=== PATIENT | male | born 1950 | race Caucasian/White ===

== ENCOUNTER 2017-07-04 11:35 | Day surgery (SDC) | payer MEDICARE, OTHER ==
[2017-07-03 16:05] LABS: BASOPHILS 0.5 % (0-2); EOSINOPHILS 1.2 % (0-7); HEMATOCRIT 51.8 % (42.0-54.0); HEMOGLOBIN 17.9 g/dL (13.5-17.5); IMMATURE GRANULOCYTES 1.5 % (0-5); LYMPHOCYTES 22.5 % (15-50); MCHC 34.6 g/dL (31.0-37.0); MCV 92.7 fL (80.0-100.0); MONOCYTES 7.6 % (2-11); NEUTROPHILS 66.7 % (40-80); RBC 5.59 10x6/uL (4.20-6.10); RDW 13.2 % (11.5-14.5); WBC 9.1 10x3/uL (4.8-10.8)
[2017-07-03 16:15] LABS: ANION GAP 8.9 mmol/L (8-16); CALCIUM 9.7 mg/dL (8.5-10.1); CARBON DIOXIDE 31.8 mmol/L (21.0-32.0); CREATININE - SERUM 1.6 mg/dL (0.6-1.3); POTASSIUM - SERUM 4.7 mmol/L (3.5-5.1)
[2017-07-03 16:19] LABS: PLATELET COUNT 142 10x3/uL (130-400)
[2017-07-03 17:30] LABS: COLOR DK YELLOW (YELLOW)
[2017-07-03 17:31] LABS: APPEARANCE CLEAR (CLEAR); BACTERIA FEW /hpf (NONE SEEN); BILIRUBIN NEGATIVE (NEGATIVE); GLUCOSE NEGATIVE (NEGATIVE); KETONE NEGATIVE (NEGATIVE); LEUKOCYTE ESTERASE TRACE (NEGATIVE); NITRITE NEGATIVE (NEGATIVE); PROTEIN NEGATIVE (NEGATIVE); RED CELLS - URINE 0-5 /hpf (0-5); UROBILINOGEN NORMAL (NORMAL); WHITE CELLS - URINE 25-50 /hpf (0-5)
[~2017-07-04] VITALS: Ht 185.4 cm; Wt 100.0 kg
--- NOTE | ~2017-07-04 | OP ---
PATIENT NAME: JOSE LINDQUIST MEDICAL RECORD: [id number] :48 LOCATION:D.OPS ADMISSION DATE: SURGEON: KENIA ESTRADA MD DATE OF OPERATION: 07/04/2017 DIAGNOSIS: L2-L3 nerve root compression on the left. PROCEDURE: L2-L3 laminotomy and foraminotomy, left. SURGEON: Kenia Estrada MD. ASSISTANT GUEST SERVICES MANAGER: None. ESTIMATED BLOOD LOSS: 50 cc. SUMMARY: The patient was taken to the operating room and after an adequate level of general anesthetic, was prepped and draped in a prone position on a Umair frame. Following this, an incision was made to the left of the spinous processes of L2-L3 and a METRx tube 1.5 cm in diameter was inserted over the interlaminar space. Following this, a Midas Hernesto drill was used to remove the medial aspect of the facet joint and a Cloward and Kerrison punch were used to enlarge the laminotomy created. A ligamentum flavum was split with a 15-blade and then removed with a Kerrison punch laterally, the neural foramina was enlarged with a Cloward punch. Dissection was then carried out beneath the traversing and exiting nerve root and no disc fragment was identified, only a bony osteophyte. This was flattened with a punch and a mallet. The wound was irrigated with an antibiotic solution and then a closure was carried out with 2-0 Dexon on the fascia and 3-0 Dexon on the subcutaneous tissue and a subcuticular stitch with 4-0 Dexon was used on the skin. The patient tolerated the procedure well, was taken to recovery in stable condition. TRANSINT:[id number] Voice Confirmation ID: [id number] DOCUMENT ID: [id number] KENIA ESTRADA MD CC: [id number] DICTATION DATE: 07/16/17 1555 BOILERS INSPECTOR: 07/16/17 1617 [facility] [place] 07/05/17 [place] [address]
[2017-07-04 11:08] VITALS: BP 137/89; BMI 29.0
[~2017-07-04 11:35] MED LIST: ADVAIR 250/501 DISK INH; ALBUTEROL2.5 MG/3 M INH; ATIVAN1 MG PO; ATROVENT HFA12.9 GM INH; AUGMENTIN 500-11 TA1 PO; BAYER CHEWABLE81 MG PO; BENADRYL25 MG PO; BETAPACE 80 MG80 MG PO; BYSTOLIC2.5 MG PO; COLACE100 MG OR; COLACE100 MG PO; EFFIENT10 MG PO; FLAGYL500 MG PO; FLUTICASONE PRO16 GM NASAL; HYDROCODON-ACE1 EAC6 PO; HYDROCODONE-APA1 TAB PO; IPRAT-ALBUT 0.5-3 ML UPD; KLONOPIN1 MG PO; LACTINEX GRANUL1 PCK PO; LASIX20 MG PO; LEVAQUIN500 MG PO; LISINOPRIL5 MG PO; LOPRESSOR25 MG PO; LOPRESSOR50 MG PO; METAMUCIL FIB1 WAFER PO; MUCINEX D1 TAB.SR . PO; NITROQUICK0.4 MG SL; NORCO 10/325 TA1 TA1 PO; NORCO 5/325 TAB1 TA1 PO; NYSTATIN ORAL SU5 ML PO; OMNICEF300 MG PO; PEPCID20 MG PO; POTASSIUM CHLOR8 ME1 PO; PREDNISONE10 MG PO; PROTONIX40 MG PO; RAPAFLO8 MG PO; SINGULAIR10 MG PO; TESSALON PERLE100 MG PO; VANCOCIN HCL250 MG PO; VOLTAREN75 MG PO; ZITHROMAX250 MG PO
--- NOTE | 2017-07-04 16:45 | NUR ---
HOLDING PER BED AVAILABILITY. CHARTING VS PER PHASE 2 PROTOCOL.
--- NOTE | 2017-07-04 18:35 | NUR ---
REPORT CALLED TO EVE LEAHY ON MED-SURG, PATIENT TRANSFERRED BY STRETCHER TO ROOM [id number]
--- NOTE | 2017-07-04 23:26 | NUR ---
PT C/O PAIN, PER EMAR NOTHING ORDERED AND NOTHING SCHEDULED, PT HAD A LAMINECTOMY TODAY, CALL ANSWERING SERVICE FOR DR PANTOJA WAS ADVISED DR PANTOJA DOES NOT TAKE CALLS FOR [facility] PATIENTS, CALLED HS AND ADVISED. PENDING RESPONSE FROM DOMONIQUE. GAVE PT .5 OF DILAUDID WHICH IS WHAT HE RECIEVED IN RECOVERY
[2017-07-05] VITALS: BP 125/77
[2017-07-05 06:08] VITALS: Ht 185.4 cm; Wt 100.0 kg
--- NOTE | 2017-07-05 08:37 | NUR ---
REGULAR DIET ORDERED. SENT MESSAGE TO DIETARY FOR BREAKFAST TRAY TO BE DELIVERED.
[2017-07-05 08:53] VITALS: BP 128/80
--- NOTE | 2017-07-05 14:12 | NUR ---
DISCHARGE INSTRUCTIONS AND PAPERS GIVEN. RIGHT FOREARM IV DC'D WITH CATHETER INTACT. PT GETTING DRESSED.
--- NOTE | 2017-07-10 11:31 | HP ---
PATIENT: JOSE LINDQUIST MEDICAL RECORD: [id number] ACCOUNT: [id number] LOCATION:SELAM : 48 ADMISSION DATE: 07/04/17 HISTORY AND PHYSICAL EXAMINATION CHIEF COMPLAINT: Back pain secondary to an L2-L3 HNP, left lateral. HISTORY OF PRESENT ILLNESS: This is a pleasant elderly gentleman, who presented to our office with complaints of back pain. It is radicular into his left hip and leg. He has numbness from his knee to his foot. The pain is worse with ambulation in his left hip. He has had a lumbar CT but shows an L2-L3 left lateral HNP with nerve root compression. He also has a pacemaker, Dr. Delgado, is his primary care doctor and he uses both Dr. Anselmo Prater and Dr. Hall as PCPs. He has fallen times 2 in the past month secondary to left leg weakness. PAST MEDICAL HISTORY: Significant for the aforementioned pacemaker. He also bruises easily, he says secondary to aspirin. He has a mild COPD, hepatic colon resection by Dr. Amador. FAMILY HISTORY: His father at the age of 66 from a heart attack and his mother from cancer. SOCIAL HISTORY: He is . His son is a pharmacist here in town. ALLERGIES: None. CURRENT MEDICATIONS: Metoprolol 12.5 b.i.d., Lasix 20 as needed. REVIEW OF SYSTEMS: He denies any recent chest pain, shortness of breath or weight changes. CT again shows that the aforementioned L2-L3 HNP with nerve root compression. PHYSICAL EXAMINATION: GENERAL: This is an alert, oriented male in no acute distress. HEENT: Normocephalic. Pupils are equal, reactive to light. CHEST: Clear to auscultation. HEART: Paced rhythm. EXTREMITIES: With his left leg. He has numbness from the knee to the ankle. He has a positive straight leg raise. Decreased range of motion of his low back. IMPRESSION: L2-L3 herniated nucleus pulposus, left lateral. PLAN: An L2-L3 laminectomy, discectomy and foraminotomy on the left. The risk and benefits of surgery have been explained to him in detail. Risks include bleeding, failure to relieve symptoms, problems with anesthesia and . Time was allowed for questions, questions were answered. The patient wishes to proceed with surgery. TRANSINT:[id number] Voice Confirmation ID: [id number] DOCUMENT ID: [id number] Dictated By: RACHEL TAPIA I have interviewed/examined the above patient and agree with these documented findings. HISTORY AND PHYSICAL [id number] JOSE LINDQUIST JAMES MD at 1131 at 1504 CC: [id number] DICTATION DATE: 07/03/17 1506 BARK TANNER: 07/03/17 1541 [facility] 07/05/17 [place] [address] [place] [address]
== END 2017-07-05 16:46 | disposition home or self-care (01) ==
LOC: D.MS 11:35 → D.OPS 11:35 → D.SDCHOLD 14:42 → EDSTATUS 15:47 → D.MS 18:37 → D.OPS 07-05 16:46
PROVIDERS: Neurological Surgery
DX: M51.26 Other intervertebral disc displacement, lumbar region (principal); I25.10 Atherosclerotic heart disease of native coronary artery without angina pectoris; Z95.810 Presence of automatic (implantable) cardiac defibrillator; I50.9 Heart failure, unspecified; I42.0 Dilated cardiomyopathy; I10 Essential (primary) hypertension; J44.9 Chronic obstructive pulmonary disease, unspecified; Z01.812 Encounter for preprocedural laboratory examination

== ENCOUNTER 2017-11-28 07:45 | Outpatient (CLI) | payer MEDICARE, OTHER ==
[~2017-11-28] VITALS: Ht 185.4 cm; Wt 97.7 kg
--- NOTE | ~2017-11-28 | OP ---
PATIENT NAME: JOSE LINDQUIST MEDICAL RECORD: [id number] :48 LOCATION:D.CAT ADMISSION DATE: SURGEON: POLINA ÁLVAREZ MD DATE OF OPERATION: PROCEDURES: 1. PTCA stent of LAD. 2. Intravascular ultrasound of the LAD. 3. Left heart catheterization. 4. Selective coronary angiography. 5. Left ventriculogram. INDICATION: Angina and coronary artery disease. PROCEDURE IN DETAIL: After informed consent was obtained and after detailed explanation of risks, benefits as well as alternative therapies, the patient was elected to proceed with angiogram and angioplasty. The right radial area was prepped and draped in normal sterile fashion. The right radial artery was cannulated via modified Seldinger technique with placement of 6-East Timorese sheath. All catheters exchanged through this sheath. FINDINGS: Left ventriculogram was performed in the standard 30-degree LOFTON view reveals severe global hypokinesis throughout all segments. Overall ejection fraction is markedly reduced in the 10% range. SELECTIVE CORONARY ANGIOGRAPHY: 1. Left main has no significant angiographic disease. 2. Left anterior descending has previously placed stents. There is a greater than 70% in-stent restenosis throughout the proximal vessel followed by a greater than 70% stenosis in the mid vessel. 3. Left circumflex has [id number]-grdyoxkc irregularities. Previously placed stents are widely patent. 4. Right coronary is large, very dominant with no significant stenosis. PTCA STENT OF THE LAD. The balloon used at the area of in-stent restenosis approximately was 3.5 x 30 mm Euphora, stenting was undertaken with a 3.0 x 12 mm Cb. Result was 0% residual stenosis. OVERALL IMPRESSION: Successful percutaneous transluminal coronary angioplasty stent of the left anterior descending going from greater than 70% initial stenosis throughout with 0% residual stenosis. TRANSINT:[id number] Voice Confirmation ID: [id number] DOCUMENT ID: [id number] POLINA ÁLVAREZ MD at 1323 CC: [id number] DICTATION DATE: 11/28/17930 DENTAL PRACTICE MANAGER: 11/28/17 1130 [facility] CLI 11/28/17 [place] [address]
--- NOTE | ~2017-11-28 | HEMODYNAMI ---
PATIENT:JOSE LINDQUIST MEDICAL RECORD: [id number] : 48 LOCATION:D.CAT ADMISSION DATE: 11/28/17 Generatedon:11/28/20179:27 Patient name: JOSE LINDQUIST Patient #: [id number] SSN: DO B: 1950 Date of study: 11/28/2017 Page: Of Hemodynamic Procedure Report Patient Data Patient Demographics Procedure consent was obtained First Name: JOSE Gender: Male Last Name: LEXA : 1950 Middle Initial: L Age: 67 year(s) Patient #: [id number] Race: Unknown Additional ID: [id number] Contact details [address]: [address] [place] [address] [place] State: [place] City: [place] Zip code: [address] Past Medical History Allergies Allergen Reaction Date Comments Reported Other allergy 03/16/2015 plavix...non-responder Other allergy 11/28/2017 Plavix Admission Admission Data Admission Date: 11/28/2017 Admission Time: 7:45 Height (in.): 73 BSA: 2.22 (m2) Height (cm.): 185.42 BMI: 28.42 (kg/m2) Weight (lbs.): 215.39 Weight (kg.): 97.7 Lab Results Lab Result Date: 11/28/2017 Lab Result Time: 0:00 Biochemistry Name Units Result Min Max BUN mg/dl 18 --(---*)-- 7 18 Creatinine mg/dl 1.3 --(---*)-- 0.6 1.3 CBC Name Units Result Min Max Hemoglobin g/dl 17.2 --(---*)-- 13.5 17.5 Procedure Procedure Types Cath Procedure Diagnostic Procedure C [facility] w/Coronaries PCI Procedure Coronary Stent Miscellaneous Procedures Moderate Sedation up to 15 minutes Procedure Description Procedure Date Procedure Date: 11/28/2017 Procedure Start Time: 9:06 Procedure End Time: 9:24 Procedure Staff Name Function William Delgado MD Performing Physician Joann Collins Alanna Estrada RT Monitor Ronit Rodriguez RN Nurse Procedure Data Cath Procedure Fluoroscopy Diagnostic fluoroscopy Total fluoroscopy Time: 5 time: 5 min min Diagnostic fluoroscopy Total fluoroscopy dose: dose: 1101 mGy 1101 mGy Contrast Material Contrast Material Type Amount (ml) Isovue 300 103 Entry Location Entry Primary Successful Side Size Upsize Upsize Entry Closure Tim ccessful Closure Location (Fr) 1 (Fr) 2 (Fr) Remarks Device Remarks Radial Right 6 Fr Mechanical TR Band artery Short Compression Estimated blood loss: 10 ml Diagnostic catheters Device Type Used For End Catheter Placement DIAGNOSTIC [place] 110cm 5 Procedure Fr catheter ([id number]) Procedure Complications No complications Procedure Medications Medication Administration Route Dosage 0.9% NaCl I.V. 100 ml/hr Oxygen NC 2 l/min Lidocaine 2% added to field 20 Heparin Flush Bag added to field 2 bags (1000units/500ml NS) Radial Cocktail added to field 1 syringe (Verapomil 2mg/Nitro 400mcg/Heparin 1500units) Fentanyl I.V. 50 mcg Versed I.V. 1 mg Fentanyl I.V. 50 mcg Versed I.V. 1 mg Fentanyl I.V. 50 mcg Heparin Bolus I.V. 4000 units Effient P.O. 10 mg Hemodynamics Rest BSA: 2.22 (m2) HGB: 17.2 (g/dl) O2 Consumption: Estimated: 259.41 (ml/min) O2 Co nsumption indexed: Estimated:116.85 (ml/min/m) Heart Rate: 72 (bpm) Snapshots Pre Cath Intra NCS Post Cath Vital Signs Time Heart Resp SPO2 NIBP (mmHg) Rhythm Pain Sedation Rate (ipm) (%) Status Level (bpm) 8:44:02 71 46 97 137/89(112) NSR 0 (11) 10(A) , No pain 8:48:14 69 16 98 135/86(110) NSR 0 (11) 10(A) , No pain 8:52:24 71 14 98 132/88(115) NSR 0 (11) 10(A) , No pain 8:56:34 69 20 95 133/86(108) NSR 0 (11) 10(A) , No pain 9:00:43 69 17 95 129/87(106) NSR 0 (11) 10(A) , No pain 9:04:51 69 16 96 133/86(101) NSR 0 (11) 10(A) , No pain 9:09:08 69 20 97 116/73(98) NSR 0 (11) 9(A) , No pain 9:13:13 69 20 94 125/77(101) NSR 0 (11) 9(A) , No pain 9:17:23 69 15 95 120/76(91) NSR 0 (11) 10(A) , No pain 9:21:31 69 15 95 123/78(91) NSR 0 (11) 10(A) , No pain Medications Time Medication Route Dose Verified Delivered Reason Notes Effectiveness by by 8:43:17 0.9% NaCl I.V. 100 William Cottrell used for ml/hr Danny Rodriguez RN procedure 8:43:25 Oxygen NC 2 l/min William Cottrell Per physician Danny Rodriguez RN 8:43:34 Lidocaine 2% added 20ml William Thomas for local to vial Danny Delgado MD anesthetic field 8:43:42 Heparin Flush added 2 bags William Thomas used for Bag to Danny Delgado MD procedure (1000units/500ml field NS) 8:43:51 Radial Cocktail added 1 Williambello Thomas for (Verapomil to syringe Danny Delgado MD vasodilation 2mg/Nitro field 400mcg/Heparin 1500units) 9:03:29 Fentanyl I.V. 50 mcg William Cottrell for sedation Danny Rodriguez RN 9:03:38 Versed I.V. 1 mg William Cottrell for sedation Danny Rodriguez RN 9:05:07 Fentanyl I.V. 50 mcg William Cottrell for sedation Danny Rodriguez RN 9:05:13 Versed I.V. 1 mg William Cottrell for sedation Danny Rodriguez RN 9:08:04 Heparin Bolus I.V. 4000 William Cottrell for verif ied units Danny Rodriguez RN anticoagulation by 9:08:05 Fentanyl I.V. 50 mcg William Cottrell for sedation Danny Rodriguez RN 9:22:46 Effient P.O. 10 mg William Cottrell for Danny Rodriguez RN antiplatelet therapy Procedure Log Time Note 8:30:06 Diagnostic Cath Status : Elective 8:30:30 Joann Moore RT(R) sent for patient. Start room use. 8:30:31 Time tracking: Regular hours 8:30:35 Plan of Care:Hemodynamics will remain stable., Cardiac rhythm will remai n stable., Comfort level will be maintained., Respiratory function will remain adequate., Patient/ family verbilizes understanding of procedure., Procedure tolerated without complication., Recovers from procedure without complications.. 8:40:16 Patient received from Pre/Post Procedure Room to CCL 2 Alert and oriente d. Tansferred to table in Supine position. 8:40:18 Warm blankets applied, and maribell hugger turned on for patient comfort. 8:40:18 Correct patient and procedure confirmed by team. 8:40:20 Signed procedure consent form obtained from patient. 8:43:01 Vital chart was started 8:43:17 0.9% NaCl 100 ml/hr I.V. was administered by Ronit Rodriguez RN; used for procedure; 8:43:25 Oxygen 2 l/min NC was administered by Ronit Rodriguez RN; Per physician; 8:43:34 Lidocaine 2% 20ml vial added to field was administered by William Delgado MD; for local anesthetic; 8:43:42 Heparin Flush Bag (1000units/500ml NS) 2 bags added to field was adminis tered by William Delgado MD; used for procedure; 8:43:51 Radial Cocktail (Verapomil 2mg/Nitro 400mcg/Heparin 1500units) 1 syringe added to field was administered by William Delgado MD; for vasodilation; 8:49:53 ECG and BP/O2 sat monitors applied to patient. 8:49:56 Baseline sample Acquired. 8:50:05 Rhythm: sinus rhythm 8:50:07 Full Disclosure recording started 8:51:07 H&P Date Dictated: 11/15/2017 Within 30 days and on chart., H&P Addendum completed by physician on day of procedure. (MUST COMPLETE FOR ALL OUTPATIENTS). 8:51:09 Pre-procedure instructions explained to patient. 8:51:11 Family in waiting room. 8:51:13 Patient NPO since Midnight. 8:51:28 Patient allergic to Other allergyPlavix 8:51:39 Is the patient allergic to Iodine/contrast media? No. 8:51:41 Is patient on blood thinner?Yes 8:51:44 ACC The patient was administered the following blood thiners within the last 24 hours: ACCEffient 8:51:54 Patient diabetic? No. 8:52:05 Snore? Yes 8:52:06 Sleep apnea? No 8:52:11 Airway obstruction? Yes COPD 8:52:15 Dentures? No ? 8:52:49 Patient pain scale 0/10 ?. 8:53:12 IV patent on arrival in left forearm with 0.9% NaCl at [facility]. 8:53:30 Lab results completed and on chart. 8:53:36 Right Radial & Right Groin area was prepped with chlora-prep and draped in sterile fashion 8:53:37 Alarms reviewed by RJerzy N. 8:53:37 Sharps counted by scrub and verified by RJerzyN. 8:53:39 Physician paged 8:58:20 Lab Result : Hemoglobin 17.2 g/dl 8:58:20 Lab Result : Creatinine 1.3 mg/dl 8:58:20 Lab Result : BUN 18 mg/dl 8:59:00 Patient Height : 73 inches 8:59:11 Patient Weight : 215.39 lbs 8:59:51 Zero performed for pressure channel P1 9:03:12 Physician arrived 9:03:12 --------ALL STOP TIME OUT------ 9:03:13 Final Timeout: patient, procedure, and site verified with staff and phys ician. All members of the team are in agreement. 9:03:20 Right Radial & Right Groin site verified by team. 9:03:23 Physical assessment completed. ASA score P 2 - A patient with mild syste vivian disease as per William Delgado MD. 9:03:28 Sedation plan: IV Moderate Sedation Medication:Versed, Fentanyl 9:03:29 Fentanyl 50 mcg I.V. was administered by Ronit Rodriguez RN; for sedation; 9:03:38 Versed 1 mg I.V. was administered by Ronit Rodriguez RN; for sedation; 9:04:02 Use device set Radial Dx or PCI 9:05:04 ACIST Syringe (09607) opened to sterile field. 9:05:05 Medline Cath Pack ([id number]) opened to sterile field. 9:05:07 Fentanyl 50 mcg I.V. was administered by Ronit Rodriguez RN; for sedation; 9:05:10 Bag Decanter (2002S) opened to sterile field. 9:05:12 SHEATH 6FR Slender ([id number]) opened to sterile field. 9:05:13 Versed 1 mg I.V. was administered by Ronit Rodriguez RN; for sedation; 9:05:13 DIAGNOSTIC WIRE .035 260cm J wire (638970) opened to sterile field. 9:05:14 ACIST Hand Control (33133) opened to sterile field. 9:05:15 ACIST Manifold (25455) opened to sterile field. 9:05:16 Tegaderm 4 x 4 (1626W) opened to sterile field. 9:05:30 TR BAND Standard ([id number]) opened to sterile field. 9:06:01 Procedure started. 9:06:19 Local anesthetic to right radial artery with Lidocaine 2% by William bernal MD.INITIAL ACCESS ONLY 9:06:46 A 6 Fr Short sheath was inserted into the Right Radial artery 9:07:03 A DIAGNOSTIC [place] 110cm 5 Fr catheter ([id number]) was advanced over the wi re and used for Procedure. 9:07:46 LV angiography performed. 9:08:04 Heparin Bolus 4000 units I.V. was administered by Ronit Rodriguez RN; for anticoagulation; verified by 9:08:05 Fentanyl 50 mcg I.V. was administered by Ronit Rodriguez RN; for sedation; 9:09:12 EF : 10 % 9:09:41 LCA angiography performed. 9:10:22 RCA angiography performed. 9:12:31 GUIDE 6FR XBLAD 3.5 catheter ([id number]) opened to sterile field. 9:12:32 INFLATOR Merit BasixCompak (HR8554) opened to sterile field. 9:12:33 WHISPER 190cm wire ([id number]) opened to sterile field. 9:12:35 Thorofare [place] IVUS Catheter (91668V) opened to sterile field. 9:13:27 Catheter removed. 9:13:28 Proceeding to intervention. 9:13:39 6 Fr XBLAD 3.5 guide catheter was inserted over the wire 9:13:43 Whisper wire advanced. 9:13:45 Wire advanced across lesion. 9:13:48 IVUS catheter advanced over wire. 9:15:15 IVUS catheter removed over wire. 9:18:17 Inflation number: 1 A EUPHORA 3.5 x 30 Balloon ([id number]) was prepped an d advanced across the Mid LAD, then inflated to 13 TRACY for 0:10 (min:sec). 9:19:10 balloon inflated multiple times through old stent 9:19:22 REMOVE D 9:20:33 Inflation Number: 1 A MARIE RX 3.0 x 12 stent ([id number]) was prepped and advanced across the Mid LAD1. The stent was deployed at 13 TRACY for 0:10 (min:sec). 9:20:45 Stent catheter was removed intact over wire. 9:22:29 Wire removed. 9:22:30 Guide catheter removed. 9::46 Effient 10 mg P.O. was administered by Ronit Rodriguez RN; for antiplatelet therapy; 9::51 Sheath removed intact; hemostasis achieved with Mechanical Compression t o the Right Radial artery. 9:22:54 Procedure ended.(Physican Out) 9:23:06 Fluoroscopy time 05.00 minutes. 9:23:11 Flurop Dose total: 1101 9:23:11 Fluoroscopy dose: 1101 mGy 9:23:16 Contrast amount:Isovue 300 103ml. 9:23:18 Sharps counted by scrub and verified by R.N. 9:23:23 TR band inflated with 11cc of air. 9:23:24 Insertion/operative site no bleeding no hematoma. 9:23:29 Post Procedure Pulses reassessed and unchanged 9:23:45 Post-procedure physical assessment completed. ASA score P 2 - A patient with mild systemic disease as per William Delgado MD. 9:23:49 Post procedure rhythm: unchanged. 9:23:52 Estimated blood loss: 10 ml 9:24:09 Post procedure instruction explained to patient.Patient verbalizes understanding. 9:24:29 Procedure type changed to Cath procedure, Diagnostic procedure, LHC, LHC w/Coronaries, PCI procedure, Coronary Stent, Miscellaneous Procedures, Moderate Sedation up to 15 minutes 9:24:30 Procedure and supply charges have been captured, reviewed, submitted and are correct. 9:24:36 Procedure Complication : No complications 9:24:39 Vital chart was stopped 9:24:40 See physician's report for complete and final results. 9:24:41 Report given to Pre/Post Procedure Room. 9:24:45 Patient transfered to Pre/Post Procedure Room with Stretcher. 9:24:48 Procedure ended. 9:24:48 Full Disclosure recording stopped 9:24:53 End room use (Document Last) Intervention Summary Intervention Notes Time ActionType Lesion and Equipment Used Action# Pressure Duration Attributes 9:18:17 Inflate Mid LAD EUPHORA 3.5 x 1 13 00:10 balloon 30 Balloon ([id number]) 9:20:33 Place stent Mid LAD1 MARIE RX 3.0 x 1 13 00:10 12 stent ([id number]) Device Usage Item Name Manufacture Quantity Catalog Hospital Part [facility] Lot# / Number Charge Number Stock Stock Serial# Code ACIST Syringe Acist 1 53844 803314 621945 266433 20 (10798) Medical Systems Inc Medline Cath Cardinal 1 [id number] 140950 48579 972979 5 [facility] ([id number]) Bag Decanter Microtek 1 053542 12326 209982 5 () Medical Inc. SHEATH 6FR Terumo 1 [id number] 825140 556683 297120 40 Slender ([id number]) DIAGNOSTIC [place] 1 135351 488336 180758 985620 30 WIRE .035 260cm J wire (105309) ACIST Hand Acist 1 20604 474135 325857 126889 5 Control Medical (54993) Systems Inc ACIST Manifold Acist 1 60874 077674 109706 597260 5 (48848) Medical Systems Inc Tegaderm 4 x 4 3M 1 1626W 955488 567905 337120 5 (1626W) TR BAND Terumo 1 [id number] 539021 278160 242983 40 Standard ([id number]) DIAGNOSTIC Terumo 1 40-7653 664063 703061 484416 5 [place] 110cm 5 Fr catheter (749069) GUIDE 6FR Cardinal 1 [id number] 326809 207167 387943 10 XBLAD 3.5 Health catheter ([id number]) INFLATOR Merit Merit 1 HR6268 973153 822038 307370 15 BasixThe [facility] Hospital[facility] T[facility] Medical ([id number]) WHISPER 190cm Hightower 1 [id number] 198462 959670 714695 5 wire Vascular ([id number]) Thorofare Thorofare 1 [id number] 864705 516687 434833 8 [place] IVUS Catheter (67925K) EUPHORA 3.5 x Medtronic 1 [id number] 388254 280936 437735 5 [id number] 30 Balloon ([id number]) MARIE RX 3.0 x Medtronic 1 [id number] 673505 3719493 542456 5 [id number] 12 stent ([id number]) Signature Audit Jermyn Stage Time Signature Unsigned Intra-Procedure 11/28/2017 Alanna Estrada 9:27:45 AM RT(R) Signatures Monitor : Alanna Estrada Signature : RT Date : Time : [facility] [address] [place] [address]
[2017-11-28] MEDS ORDERED: EFFIENT10 MG PO (08:00)
[2017-11-28 08:04] VITALS: BP 93/53; Ht 185.4 cm; Wt 97.7 kg
[2017-11-28 08:22] LABS: BASOPHILS 0.8 % (0-2); EOSINOPHILS 3.1 % (0-7); HEMATOCRIT 48.5 % (42.0-54.0); HEMOGLOBIN 17.2 g/dL (13.5-17.5); IMMATURE GRANULOCYTES 0.8 % (0-5); LYMPHOCYTES 22.7 % (15-50); MCH 30.9 pg (26.0-34.0); MCHC 35.5 g/dL (31.0-37.0); MCV 87.1 fL (80.0-100.0); MEAN PLATELET VOLUME 9.5 fL (7.4-10.4); MONOCYTES 9.9 % (2-11); NEUTROPHILS 62.7 % (40-80); PLATELET COUNT 166 10x3/uL (130-400); RBC 5.57 10x6/uL (4.20-6.10); WBC 7.8 10x3/uL (4.8-10.8)
[2017-11-28 08:31] LABS: CALCIUM 9.7 mg/dL (8.5-10.1); CARBON DIOXIDE 24.1 mmol/L (21.0-32.0); CREATININE - SERUM 1.3 mg/dL (0.6-1.3); POTASSIUM - SERUM 4.1 mmol/L (3.5-5.1)
== END 2017-11-28 13:41 | disposition home or self-care (01) ==
LOC: D.CATH 07:45
PROVIDERS: Internal Medicine Interventional Cardiology
DX: I25.119 Atherosclerotic heart disease of native coronary artery with unspecified angina pectoris (principal); I47.2 Ventricular tachycardia; I10 Essential (primary) hypertension; Z95.810 Presence of automatic (implantable) cardiac defibrillator; Z01.812 Encounter for preprocedural laboratory examination
CPT/HCPCS: 93458; 92978; C9600

== ENCOUNTER 2018-11-07 19:32 | Emergency (ER) | payer MEDICARE, OTHER ==
[~2018-11-07] VITALS: Ht 185.4 cm; Wt 95.5 kg
[2018-11-07 19:38] VITALS: Ht 185.4 cm; Wt 95.5 kg
[2018-11-07] MEDS ORDERED: CYCLOBENZAPRINE10 MG PO (19:39)
[2018-11-07 20:11] LABS: APPEARANCE CLEAR (CLEAR); COLOR YELLOW (YELLOW); SPECIFIC GRAVITY 1.015 (1.005-1.020)
[2018-11-07 20:12] LABS: BILIRUBIN NEGATIVE (NEGATIVE); GLUCOSE NEGATIVE (NEGATIVE); KETONE NEGATIVE (NEGATIVE); NITRITE NEGATIVE (NEGATIVE); PROTEIN NEGATIVE (NEGATIVE); UROBILINOGEN NORMAL (NORMAL)
[2018-11-07 20:13] LABS: BASOPHILS 0.5 % (0-2); EOSINOPHILS 0.5 % (0-7); HEMATOCRIT 46.9 % (42.0-54.0); IMMATURE GRANULOCYTES 1.4 % (0-5); LYMPHOCYTES 10.9 % (15-50); MCH 32.8 pg (26.0-34.0); MCHC 36.2 g/dL (31.0-37.0); MCV 90.4 fL (80.0-100.0); MEAN PLATELET VOLUME 9.3 fL (7.4-10.4); MONOCYTES 7.7 % (2-11); PLATELET COUNT 135 10x3/uL (130-400); RBC 5.19 10x6/uL (4.20-6.10); RDW 13.8 % (11.5-14.5); WBC 9.5 10x3/uL (4.8-10.8)
[2018-11-07 20:28] LABS: APTT 32.2 SECONDS (22.8-39.4)
[2018-11-07 20:30] LABS: INR 1.06 (0.85-1.17); PROTIME 13.3 SECONDS (11.6-15.0)
[2018-11-07 20:38] LABS: ALBUMIN 3.7 g/dL (3.4-5.0); ALKALINE PHOSPHATASE 59 U/L (46-116); ALT (SGPT) 34 U/L (10-68); BILIRUBIN - TOTAL 2.02 mg/dL (0.2-1.3); CALC OSMOLALITY 271 mosm/kg (275-300); CALCIUM 10.2 mg/dL (8.5-10.1); CHLORIDE - SERUM 95 mmol/L (98-107); CREATININE - SERUM 1.2 mg/dL (0.6-1.3); GLUCOSE 119 mg/dL (74-106); POTASSIUM - SERUM 3.5 mmol/L (3.5-5.1); PROTEIN - SERUM 7.6 g/dL (6.4-8.2); SODIUM 135 mmol/L (136-145); UREA NITROGEN 14 mg/dL (7-18); eGFR NON AFRICAN AMERICAN 64 mL/min (90-120)
[2018-11-07 20:49] LABS: AMYLASE - SERUM 66 U/L (25-115); CKMB 1.4 U/L (0.0-3.6); CREATINE KINASE 55 UL (21-232)
[2018-11-07 20:55] LABS: LIPASE 1830 U/L (73-393); TROPONIN-I < 0.017 ng/mL (0.000-0.060)
[2018-11-07] MEDS ORDERED: ZOFRAN8 MG PO (22:35)
[2018-11-07 22:55] VITALS: BP 127/84
[2018-11-08] MEDS ORDERED: KLONOPIN1 MG PO (14:27)
[2018-11-08] MEDS ORDERED: PACERONE200 MG PO (14:29)
== END 2018-11-07 22:55 | disposition home or self-care (01) ==
LOC: D.ER 19:32
PROVIDERS: Family Medicine
DX: R07.9 Chest pain, unspecified (principal); R10.13 Epigastric pain; Z86.79 Personal history of other diseases of the circulatory system; K85.90 Acute pancreatitis without necrosis or infection, unspecified; R06.02 Shortness of breath

== ENCOUNTER 2018-11-08 10:58 | Observation (INO) | payer MEDICARE, OTHER ==
[~2018-11-08] VITALS: Ht 185.4 cm; Wt 95.0 kg
--- NOTE | ~2018-11-08 | MORECARE ---
CASE MANAGEMENT DISCHARGE SUMMARY PATIENT: JOSE LINDQUIST UNIT: [id number] ADM DATE: 11/09/18 AGE: 68 : [birth year] SEX: M ROOM/BED: D.2140 AUTHOR: LYDIA PUENTES PHYSICIAN: REFERRING PHYSICIAN: NYLA OROZCO MD DATE OF SERVICE: 11/09/18 Discharge Plan Patient Name: JOSE LINDQUIST [facility] : 1950 Planned Disposition: Anticipated Discharge Date: Discharge Date: Expected LOS: Initial Reviewer: [email or web address] Initial Review Date: 11/09/2018 Generated: 11/09/18 4:32 pm Comments DCP- Discharge Planning Updated by [email or web address]: Zunilda Owen on 11/09/18 2:[address] RECEIVED ORDER TO MAKE SURE THAT THE PATIENTS INSURANCE WOULD COVER ELIQU[employer]. THE PATIENT HAS MEDICARE AND QUALCHOICE. I HAVE TAKEN HIM THE HOSPITAL TO HOME ELIQUIS PACKET THAT TEACHES ABOUT ELIQU[employer]. IT HAS A 30 DAY FREE TRIAL CARD AND THE INFORMATION TO GET A DISCOUNT CARD WHERE HE ONLY PAYS $10.00 PER MONTH. THIS IS AN AFFORDABLE AMOUNT FOR THE PATIENT. THE PATIENT IS IN A HURRY TO GO AND HAS REQUESTED THAT I TELL THE DISCHARGE NURSE TO HURRY UP. I HAVE EXPLAINED TO THE DISCHARGE NURSE THAT HE IS IN A HURRY AND I HAVE DELIVERED THE HOME TO HOSPITAL ELIQUIS PACKET TO HIM. DENIES OTHER NEEDS. FAMILY MEMBER AT BEDSIDE. Patient Name: JOSE LINDQUIST Page [phone] at 1532 All edits/amendments must be made on the electronic document DICTATION DATE: 11/09/18 153 OPERATIONS LIEUTENANT: ROSSY 11/09/18 153 RPT#: [id number] DC DATE: STATUS: ADM IN [facility] [address] [facility] [place] [address] END OF REPORT
--- NOTE | ~2018-11-08 | MORECARE ---
CASE MANAGEMENT DISCHARGE SUMMARY PATIENT: JOSE LINDQUIST UNIT: [id number] ADM DATE: 11/09/18 AGE: 68 : [birth year] SEX: M ROOM/BED: D.2140 AUTHOR: LYDIA PUENTES PHYSICIAN: REFERRING PHYSICIAN: NYLA OROZCO MD DATE OF SERVICE: 11/12/18 Discharge Plan Patient Name: JOSE LINDQUIST [facility] [facility] 1950 Planned Disposition: Home Anticipated Discharge Date: 11/09/18 Discharge Date: 11/09/2018 Expected LOS: 1 Initial Reviewer: [email or web address] Initial Review Date: 11/09/2018 Generated: 11/12/18 12:58 pm Comments DCP- Discharge Planning Updated by [email or web address]: Zunilda Owen on 11/09/18 2:[address] RECEIVED ORDER TO MAKE SURE THAT THE PATIENTS INSURANCE WOULD COVER [employer]. THE PATIENT HAS MEDICARE AND QUALCHOICE. I HAVE TAKEN HIM THE HOSPITAL TO HOME EL[facility] PACKET THAT TEACHES ABOUT EL[employer]. IT HAS A 30 DAY FREE TRIAL CARD AND THE INFORMATION TO GET A DISCOUNT CARD WHERE HE ONLY PAYS $10.00 PER MONTH. THIS IS AN AFFORDABLE AMOUNT FOR THE PATIENT. THE PATIENT IS IN A HURRY TO GO AND HAS REQUESTED THAT I TELL THE DISCHARGE NURSE TO HURRY UP. I HAVE EXPLAINED TO THE DISCHARGE NURSE THAT HE IS IN A HURRY AND I HAVE DELIVERED THE HOME TO HOSPITAL ELIQUIS PACKET TO HIM. DENIES OTHER NEEDS. FAMILY MEMBER AT BEDSIDE. Last DP export: 11/09/18 2:32 Patient Name: JOSE LINDQUIST Page [id number] at 1158 All edits/amendments must be made on the electronic document DICTATION DATE: 11/12/18 1158 PUBLIC RELATIONS COORDINATOR: ROSSY 11/12/18 1158 RPT#: [id number] DC DATE:11/09/18 STATUS: DIS IN [facility] [address] [place] [address] END OF REPORT
--- NOTE | ~2018-11-08 | EC ---
PATIENT:JOSE LINDQUIST DATE OF SERVICE: 11/09/18 SEX: M MEDICAL RECORD: [id number] DATE OF : [birth year] LOCATION:D.M2 D.214 AGE OF PATIENT: 68 ADMISSION DATE: 11/09/18 REFERRING PHYSICIAN: INTERPRETING PHYSICIAN: POLINA DELGADO MD ECHOCARDIOGRAM REPORT ECHO CHARGES 4 ECHO COMPLETE Date: 11/09/18 CLINICAL DIAGNOSIS: PE ECHOCARDIOGRAPHIC MEASUREMENTS (adult normal given) AC root (d.<3.7cm) 3.5 cm LV Septum d (<1.2 cm> 1.2 cm Valve Excursion 1.9 cm LV Septum (systole) 1.6 cm Left Atria (s.<4.0cm> 3.5 cm LVPW d(<1.2cm) 1.2 cm RV (d.<2.3cm) 2.8 cm LVPW (sytole) 1.6 cm LV diastole(<5.6CM) 8.0 cm MV E-F(>70mm/sec) cm LV systole 7.0 cm LVOT Diameter 2.6 cm MV exc.(>10mm) cm Est.ejection fraction (50-75%) % DOPPLER: LVIT cm/sec A 55.0 cm/sec E 59.0 cm/sec LA cm/sec RVSP 17.0 mmHg LVOT 98.0 cm/sec AOP1/2T m/s Asc. Ao 143 cm/sec RVOT 53.0 cm/sec RA cm/sec PA 38.0 cm/sec AV Gradient Peak 8.2 mmHg AV Mean 3.9 mmHg AV Area 2.8 cm MV Gradient Peak 3.4 mmHg MV Mean 1.2 mmHg MV Area cm COMMENTS: Delinquent Account Clerk: Joan [facility] [employer] Chief: 1 Dr. Delgado TAPE# PACS Pericardial Effusion N DATE OF SERVICE: 11/09/2018 FINDINGS: 1. Left ventricular chamber size is dilated. Left ventricular systolic function is markedly reduced. Overall ejection fraction is 25%. 2. Left atrium is within normal limits at 3.5 cm. Right atrium and right ventricle chamber sizes are mildly dilated. 3. Valvular structures have normal structure and motion. 4. Doppler interrogation reveals only [id number] mitral regurgitation. No other valvular insufficiency or stenosis. ECHOCARDIOGRAM REPORT [id number] JOSE LINDQUIST 5. No evidence of pericardial effusion or left ventricular thrombus. TRANSINT:[id number] Voice Confirmation ID: [id number] DOCUMENT ID: [id number] POLINA DELGADO MD CC: [id number] DICTATION DATE: 11/09/18 1250 CAP COVERER: 11/09/18 1630 ADM IN [facility] [address] [place] [id number]
[~2018-11-08 10:58] MED LIST changes: +CYCLOBENZAPRINE10 MG PO; +ZOFRAN8 MG PO
[2018-11-08 11:40] LABS: BASOPHILS 0.2 % (0-2); EOSINOPHILS 0.4 % (0-7); HEMATOCRIT 44.9 % (42.0-54.0); HEMOGLOBIN 16.2 g/dL (13.5-17.5); IMMATURE GRANULOCYTES 1.2 % (0-5); MCH 32.6 pg (26.0-34.0); MCHC 36.1 g/dL (31.0-37.0); MCV 90.3 fL (80.0-100.0); MEAN PLATELET VOLUME 9.5 fL (7.4-10.4); MONOCYTES 10.6 % (2-11); NEUTROPHILS 72.6 % (40-80); PLATELET COUNT 130 10x3/uL (130-400); RBC 4.97 10x6/uL (4.20-6.10); WBC 8.2 10x3/uL (4.8-10.8)
[2018-11-08 12:03] LABS: ALBUMIN 3.6 g/dL (3.4-5.0); ALKALINE PHOSPHATASE 56 U/L (46-116); BILIRUBIN - TOTAL 2.14 mg/dL (0.2-1.3); CALC OSMOLALITY 274 mosm/kg (275-300); CALCIUM 9.5 mg/dL (8.5-10.1); CHLORIDE - SERUM 98 mmol/L (98-107); CREATININE - SERUM 1.4 mg/dL (0.6-1.3); GLUCOSE 102 mg/dL (74-106); POTASSIUM - SERUM 3.6 mmol/L (3.5-5.1); PROTEIN - SERUM 7.4 g/dL (6.4-8.2); SODIUM 137 mmol/L (136-145); TROPONIN-I < 0.017 ng/mL (0.000-0.060); UREA NITROGEN 16 mg/dL (7-18); eGFR NON AFRICAN AMERICAN 53 mL/min (90-120)
[2018-11-08 12:04] VITALS: BP 130/87
[2018-11-08 12:04] LABS: ALT (SGPT) 25 U/L (10-68)
[2018-11-08 13:30] VITALS: BP 137/87
[2018-11-08] MEDS ORDERED: KLONOPIN1 MG PO (14:27)
[2018-11-08] MEDS ORDERED: PACERONE200 MG PO (14:29)
[2018-11-08 16:22] VITALS: BP 131/79; Ht 185.4 cm; Wt 95.0 kg
[2018-11-08 20:37] VITALS: BP 117/75
[2018-11-09 00:07] VITALS: BP 105/55
[2018-11-09 04:50] VITALS: BP 97/51
[2018-11-09 09:03] VITALS: BP 104/53
[2018-11-09 12:05] LABS: COLOR AMBER (YELLOW)
[2018-11-09 12:06] LABS: APPEARANCE HAZY (CLEAR); BILIRUBIN NEGATIVE (NEGATIVE); GLUCOSE NEGATIVE (NEGATIVE); KETONE NEGATIVE (NEGATIVE); NITRITE NEGATIVE (NEGATIVE); PROTEIN TRACE mg/dL (NEGATIVE); UROBILINOGEN NORMAL (NORMAL)
[2018-11-09 12:10] LABS: BACTERIA FEW /hpf (NONE SEEN); EPITHELIAL CELLS RARE /hpf (0-5); RED CELLS - URINE >50 /hpf (0-5); WHITE CELLS - URINE 0-5 /hpf (0-5)
[2018-11-09 12:12] VITALS: BP 124/79
[2018-11-09] MEDS ORDERED: ELIQUIS5 MG PO ×2 (14:49→14:50)
[2018-11-09] MEDS ORDERED: PROTONIX40 MG PO (14:50)
== END 2018-11-09 16:32 | disposition home or self-care (01) ==
LOC: D.ER 10:58 → OBSVTIME 13:33 → D.EDHOLD 13:33 → D.M2 13:33
PROVIDERS: Family Medicine; Internal Medicine Nephrology
DX: I26.99 Other pulmonary embolism without acute cor pulmonale (principal); J96.01 Acute respiratory failure with hypoxia; I42.9 Cardiomyopathy, unspecified; I25.10 Atherosclerotic heart disease of native coronary artery without angina pectoris; I10 Essential (primary) hypertension; J43.9 Emphysema, unspecified; I48.91 Unspecified atrial fibrillation; K21.9 Gastro-esophageal reflux disease without esophagitis; Z87.891 Personal history of nicotine dependence

== ENCOUNTER 2019-06-27 21:20 | Observation (INO) | payer MEDICARE, BC ==
[~2019-06-27] VITALS: Ht 185.4 cm; Wt 99.3 kg
[~2019-06-27 21:20] MED LIST changes: +ELIQUIS5 MG PO; +PACERONE200 MG PO
[2019-06-27] MEDS ORDERED: VIAGRA100 MG PO (21:28)
[2019-06-27 21:48] LABS: BASOPHILS 1.1 % (0-2); HEMATOCRIT 46.2 % (42.0-54.0); HEMOGLOBIN 16.5 g/dL (13.5-17.5); IMMATURE GRANULOCYTES 1.1 % (0-5); LYMPHOCYTES 22.6 % (15-50); MCH 32.5 pg (26.0-34.0); MCHC 35.7 g/dL (31.0-37.0); MCV 90.9 fL (80.0-100.0); MEAN PLATELET VOLUME 9.7 fL (7.4-10.4); MONOCYTES 11.2 % (2-11); PLATELET COUNT 151 10x3/uL (130-400); RBC 5.08 10x6/uL (4.20-6.10); RDW 13.1 % (11.5-14.5); WBC 4.7 10x3/uL (4.8-10.8)
[2019-06-27 21:55] VITALS: BP 121/73
[2019-06-27 22:08] LABS: ALBUMIN 3.7 g/dL (3.4-5.0); ANION GAP 16.5 mmol/L (8-16); BILIRUBIN - TOTAL 0.75 mg/dL (0.2-1.3); CALCIUM 8.8 mg/dL (8.5-10.1); CARBON DIOXIDE 22.7 mmol/L (21.0-32.0); CREATININE - SERUM 1.2 mg/dL (0.6-1.3); POTASSIUM - SERUM 4.2 mmol/L (3.5-5.1); PROTEIN - SERUM 7.2 g/dL (6.4-8.2)
[2019-06-27 22:10] LABS: ACETAMINOPHEN 8.7 ug/mL (10.0-30.0); MAGNESIUM - SERUM 1.9 mg/dL (1.8-2.4)
[2019-06-27 22:18] VITALS: BP 126/85
--- NOTE | 2019-06-27 23:07 | NUR ---
PSYCH NURSE TO BEDSIDE TO DO ASSESSMENT.
[2019-06-27 23:19] LABS: APPEARANCE CLEAR (CLEAR); BILIRUBIN NEGATIVE (NEGATIVE); COLOR YELLOW (YELLOW); GLUCOSE NEGATIVE (NEGATIVE); KETONE NEGATIVE (NEGATIVE); NITRITE NEGATIVE (NEGATIVE); PROTEIN NEGATIVE (NEGATIVE); SPECIFIC GRAVITY 1.015 (1.005-1.020); UDS - AMPHET NEGATIVE QUAL (NEGATIVE); UDS - BARB NEGATIVE QUAL (NEGATIVE); UDS - BENZO NEGATIVE QUAL (NEGATIVE); UDS - COCAINE NEGATIVE QUAL (NEGATIVE); UDS - OPIATE POSITIVE QUAL (NEGATIVE); UDS - PCP NEGATIVE QUAL (NEGATIVE); UDS - THC NEGATIVE QUAL (NEGATIVE); UROBILINOGEN NORMAL (NORMAL)
--- NOTE | 2019-06-27 23:50 | NUR ---
PT IS RESTING QUIETLY EASY TO AROUSE. FOLLOWS DIRECTIONS, IS A&O X2, REORIENTED TO DATE/TIME. PATIENT IS WITHIN LINE OF SITE, SON WAS HERE BUT, LEFT.
[2019-06-28] VITALS (7 sets, daily range): BP systolic 103–121; BP diastolic 69–87; Ht 185.4 cm; Wt 99.3 kg
--- NOTE | 2019-06-28 00:03 | NUR ---
DR LUCIO NOTIFIED AND SITTER ORDERED. SITTER AT BEDSIDE, NOTIFIED CHARGE NURSE AND ATTENDING IN REGARDS TO ASSESSMENT FINDINGS, RESOURCES GIVEN TO PT AND SAFETY PLAN INITIATED.
--- NOTE | 2019-06-28 00:10 | NUR ---
PT REC'D FROM ED VIA STRETCHER, TRANSF TO ICU BED WITHOUT DIFFIC. COMPANY MANAGER ATTACHED. PT FOLLOWS COMMANDS AND ANSWERED SOME QUESTIONS APPROP. CALL LIGHT IN REACH. WILL CONT TO MONITOR.
--- NOTE | 2019-06-28 00:36 | NUR ---
PATIENT USED URINAL OUTPUT 300 CC YELLOW URINE. DECLINED WANTING A TINEO.
[2019-06-28 04:14] LABS: EOSINOPHILS 4.3 % (0-7); HEMATOCRIT 45.9 % (42.0-54.0); HEMOGLOBIN 15.9 g/dL (13.5-17.5); LYMPHOCYTES 28.3 % (15-50); MCH 32.1 pg (26.0-34.0); MCHC 34.6 g/dL (31.0-37.0); MCV 92.7 fL (80.0-100.0); MEAN PLATELET VOLUME 9.8 fL (7.4-10.4); MONOCYTES 13.5 % (2-11); NEUTROPHILS 51.9 % (40-80); PLATELET COUNT 136 10x3/uL (130-400); RBC 4.95 10x6/uL (4.20-6.10); RDW 13.3 % (11.5-14.5)
[2019-06-28 04:50] LABS: ALBUMIN 3.1 g/dL (3.4-5.0); BILIRUBIN - TOTAL 0.79 mg/dL (0.2-1.3); CALCIUM 8.6 mg/dL (8.5-10.1); CARBON DIOXIDE 25.1 mmol/L (21.0-32.0); CREATININE - SERUM 1.2 mg/dL (0.6-1.3); POTASSIUM - SERUM 4.1 mmol/L (3.5-5.1); PROTEIN - SERUM 6.4 g/dL (6.4-8.2)
--- NOTE | 2019-06-28 04:50 | NUR ---
ASSISSTED TO BSC, VOIDS AND LARGE BM NOTED. BACK TO BED WITHOUT DIFFIC.
--- NOTE | 2019-06-28 10:31 | NUR ---
PT DENIES SI AT THIS TIME. HE CONTINUES TO STATE THAT HE IS DEPRESSED. WHEN QUESTIONED TO WHY HE TRIED TO OVERDOSE, HE STATED, "I HAD TOO MUCH STUFF THROWN AT ME AT ONCE." COPING SKILLS DISCUSSED WITH PT. LORENA AT BEDSIDE.
[2019-06-28] MEDS ORDERED: ATIVAN IV (16:40)
--- NOTE | 2019-06-28 19:26 | MORECARE ---
CASE MANAGEMENT DISCHARGE SUMMARY PATIENT: JOSE LINDQUIST UNIT: [id number] ADM DATE: 06/27/19 AGE: 68 : 49 SEX: M ROOM/BED: D.2305 AUTHOR: LYDIA PUENTES PHYSICIAN: REFERRING PHYSICIAN: TONO ASHTON MD DATE OF SERVICE: 06/28/19 Discharge Plan Patient Name: JOSE LINDQUIST [facility] [facility] 1950 Planned Disposition: Psych facility Anticipated Discharge Date: Discharge Date: 06/28/2019 Expected LOS: Initial Reviewer: [email or web address] Initial Review Date: 06/28/2019 Generated: 06/28/19 8:26 pm Patient Name: JOSE LINDQUIST Page [id number] at 1926 All edits/amendments must be made on the electronic document DICTATION DATE: 06/28/191925 SENIOR PORTFOLIO MANAGER: ROSSY 06/28/191925 RPT#: [id number] DC DATE:06/28/19 STATUS: DIS IN [facility] [address] [place] [address] END OF REPORT
== END 2019-06-28 18:13 ==
LOC: D.ER 21:20 → D.ICU 21:57 → OBSVTIME 21:57 → D.ICU 06-28 18:13
PROVIDERS: Family Medicine; ADMIT Family Medicine; ATTEND Family Medicine
DX: T50.3X2A Poisoning by electrolytic, caloric and water-balance agents, intentional self-harm, initial encounter (principal); T40.602A Poisoning by unspecified narcotics, intentional self-harm, initial encounter; K21.9 Gastro-esophageal reflux disease without esophagitis; I42.9 Cardiomyopathy, unspecified; F10.94 Alcohol use, unspecified with alcohol-induced mood disorder; J43.9 Emphysema, unspecified; I25.10 Atherosclerotic heart disease of native coronary artery without angina pectoris; G89.29 Other chronic pain; F60.89 Other specific personality disorders

== ENCOUNTER 2019-06-28 17:59 | Inpatient (IN) | payer MEDICARE, BC ==
[~2019-06-28 17:59] MED LIST changes: +ATIVAN IV; +VIAGRA100 MG PO
[2019-06-28 18:34] VITALS: BP 118/80
[2019-06-28 21:00] VITALS: BP 139/90
--- NOTE | 2019-06-29 02:53 | NUR ---
PATIENT IS SLEEPING AT THIS TIME. ASKED FOR JUICE EARLIER, SEEMS TO BE ADJUSTING TO UNIT WELL. CAN MAKE NEEDS KNOWN. WILL FOLLOW POC
[2019-06-29 07:08] LABS: CHOL - HDL RATIO 4.4 ratio (2.3-4.9); LDL-HDL RATIO 1.5 ratio (1.5-3.5)
--- NOTE | 2019-06-29 09:30 | CN ---
PATIENT NAME:JOSE LINDQUIST MEDICAL RECORD: [id number] : [birth year] LOCATION:[id number] ADMIT DATE: 06/28/19 ACCOUNT: [id number] CONSULTING PHYSICIAN: JORGE LUCIO MD REFERRING PHYSICIAN: JORGE LUCIO MD DATE OF CONSULTATION: 06/28/2019 Psychiatric Consultation IDENTIFYING DATA: The patient is 68 years old and he is admitted to the hospital secondary to an overdose. CHIEF COMPLAINT: "I have a lot of problems." HISTORY OF PRESENT ILLNESS: The patient presented to the Emergency Room last night after having taken a bottle of potassium chloride along with about 20 tablets of hydrocodone and Klonopin. He says he did this in an effort to kill himself. 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 He is having marital conflicts and he has numerous health problems. He also drinks a fifth of liquor daily and has done so for a number of years. Interestingly, his potassium was not elevated in the Emergency Room and although he was positive for an opiate on his urine drug screen there was no evidence of having taken a benzo. He insists that he did so when I asked him about this. He also had a blood alcohol level that was only 5 and that is obviously very low and may even be measuring error. He denies any thoughts of harming others. He denies psychotic symptoms. He says that he is fine and wants to go home and that he is not depressed, but individually he endorses numerous neurovegetative depressive symptoms. MENTAL STATUS EXAMINATION: The patient is awake, alert and oriented to person, place, time and situation. His mood is depressed. His affect is constricted. Thought processes are circumstantial. Memory, concentration, and abstraction abilities are mildly impaired and he denies any intent to harm himself or others as well as psychotic symptoms. ASSESSMENT: 1. Status post overdose. 2. Alcohol use disorder. 3. Major depression. 4. 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 PLAN: The patient will be treated with antidepressant medicine and observe for alcohol withdrawal. Once he is medically stable, he may be transferred to the behavioral unit for ongoing evaluation and treatment of his symptoms. TRANSINT:[id number] Voice Confirmation ID: [id number] DOCUMENT ID: [id number] CONSULT REPORT [id number] JOSE LINDQUIST PETER MD at 0930 CC: [id number] DICTATION DATE: 06/28/19 1636 RETAIL LOSS PREVENTION INVESTIGATOR: 06/28/19 2130 ADM IN [place] [id number] [place] [id number]
[2019-06-29 09:54] VITALS: Ht 182.9 cm
--- NOTE | 2019-06-29 10:00 | NUR ---
PATIENT IS SITTING AT DINING ROOM TABLE BY HIMSELF. REFUSES TO SIT IN DAY AREA STATING IT DRIVES HIM BONKERS.HE CAN'T BE AROUND THOSE PEOPLE. PT ORIENTED TO PERSON, PLACE AND SITUTION. MED COMPLIANT. PT VOICES DESIRE TO LEAVE UNIT STATING HE DOES NOT WANT TO BE HERE. COMPLIANT WITH MEDS, VITAL SIGNS, AND ASSESSMENT. WILL CONT PLAN OF CARE.
--- NOTE | 2019-06-29 11:00 | NUR ---
SPOKE WITH SON IN REGARDS TO DISCHARGE ORDERS. SON WAS NOT HAPPY ABOUT PT BEING DISCHARGED. NURSE STATED SHE WOULD SPEAK TO DR. LUCIO AND CALL BACK.
--- NOTE | 2019-06-29 13:00 | NUR ---
NURSE EXPLAINED TO SON THAT DOCTOR NAVEED WAS DISCHARGING PATIENT DUE TO LACK OF INPATIENT CRITERIA. SON STATED "HE COULD NOT BELIEVE WE WERE DISCHARGING HIM TODAY AND THAT IF ANYTHING HAPPENED WE WOULD BE RESPONSIBLE FOR ANYTHING HE DOES. I'M A PHARMACIST AND I KNOW A PATIENT HAS TO STAY ON A 72 HOUR OLD." NURSE EXPLAINED THAT THE PATIENT WAS NOT INPATIENT CRITERIA. SET UP DISCHARGE TIME WITH SON.
[2019-06-29 13:07] VITALS: BP 142/70
--- NOTE | 2019-06-29 14:49 | NUR ---
PATIENT DISCHARGED WITH SON TO HOME. PT STABLE AT TIME OF DISCHARGE. BELONGINGS COLLECTED FROM ICU, MEDICATION FROM THE PHARMACY, DISCHARGE PAPERWORK SENT WITH PATIENT. NO ACUTE DISTRESS NOTED.
--- NOTE | 2019-06-30 10:49 | PSY ---
PATIENT NAME:JOSE LINDQUIST MEDICAL RECORD: [id number] : 48 LOCATION:LEO [id number] ADMISSION DATE: 06/28/19 ACCOUNT: [id number] PSYCHIATRIC EVALUATION DATE OF EVALUATION: 06/29/19 IDENTIFYING DATA: The patient is 68 years old and he is admitted to the hospital on a voluntary basis. CHIEF COMPLAINT: "I just did something stupid." HISTORY OF PRESENT ILLNESS: The patient was admitted to the hospital the day before secondary to an overdose. He presented to the Emergency Room stating that he had taken a large amount of Klonopin and hydrocodone and bottle of potassium chloride. He was admitted and placed on suicide precautions. I did see him yesterday in the ICU and recommended that he be transferred to psychiatric care once stabilized. He has been transferred here and he slept 8 hours last night and did not eat much breakfast. He says that this is all just a big misunderstanding. He was not drunk when he came to the Emergency Room even though he drinks heavily. He tells me yesterday when I asked him about the potassium, he insisted he drank it today, he admits he did not and that would be consistent with the labs since he had a normal potassium level in the Emergency Room. I also told him that there was no Klonopin in his urine and he confesses that he is actually out of it and did not take any. He also says he did not take the hydrocodone. He tells me that he is upset with his children and his that he has business problems and he feels like he is under a lot of stress. He sees a therapist named, Mr. Hernandez who is obviously not a physician, but Jose tells me that he is working on his alcoholism with this therapist. He does not want to be here in the hospital. He insists he is not suicidal. He does not want any kind of residential or outpatient substance abuse treatment. He wants to go home. He says that he can sit in the same room with the other patients that it is "driving me crazy to be here." PAST MEDICAL HISTORY: Significant for previous HI, cardiac pacemaker placement, stents, angioplasty, angina, coronary artery disease, COPD, emphysema, acid reflux, diverticulitis, chronic back pain, osteoarthritis, appendectomy, ileostomy, and hernia repair. PAST PSYCHIATRIC HISTORY: Significant for alcoholism. He has never attempted to harm himself in the past and actually given the circumstances, he does confess today he did not try to kill himself this time either. He does have trouble with alcoholism. He drinks excessively and has for a long time. ALLERGIES: PLAVIX. CURRENT MEDICATIONS: Include Protonix, Eliquis, Zofran, Viagra, Klonopin, Pacerone, Cuervo. FAMILY HISTORY: Significant for cardiovascular disease. SOCIAL HISTORY: The patient is a former smoker. He drinks alcohol excessively and denies a history of recreational drug abuse. 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 MENTAL STATUS EXAMINATION: The patient is awake, alert, and oriented fully. His mood is euthymic. His affect is appropriate. Thought processes are circumstantial, but only when he is trying to avoid a difficult question. Memory, concentration, and abstraction abilities are intact. He denies that he would seek to harm himself or others. He denies overt psychotic symptoms. ASSETS: Supportive family members. LIABILITIES: Limited insight. DIAGNOSTIC IMPRESSION: AXIS I: Major depression, mild without psychotic features, probably secondary to alcohol use, and alcohol disorder. AXIS II: Cluster B personality disorder. AXIS III: Cardiomyopathy, chronic back pain, emphysema, chronic obstructive pulmonary disease, cardiac arrhythmia, and coronary artery disease. AXIS IV: Moderate. AXIS V: Global assessment of functioning is 45. PLAN: At this time, the patient is wanting to be discharged. I have evaluated the situation and given the circumstances, I do not think he meets criteria for an involuntary commitment. I have encouraged him to stay and allow me to watch him for alcohol withdrawal symptoms and treat him for depression, but he does not want to. I considered discharging him against medical advice, but I know that if I do so, he may be stuck with big hospital bill and I do not want to add to his distress. I am going to discharge him as a regular discharge even though I recommended he stay. I have assessed him for dangerousness and feel that even though he is under a lot of stress, this is a low risk. I have offered him inpatient residential substance abuse treatment and he is flatly denied that he wants to go to it. Frankly, I think that probably his prognosis is largely going to be contingent upon his drinking and he says that he can stop drinking just by seeing his counselor, but he cannot explain why he has not done so already, he just says he has cut down. He is unwilling to stay. He is unwilling to go to substance abuse treatment. He does not meet criteria for an involuntary commitment. Given the fact that he really did not take an overdose either a potassium or of Klonopin and the fact that his last prescription for hydrocodone was June 14 at which time he received 60 tablets with the instructions to take 2 a day, I think it is possible that he took an overdose of hydrocodone, but again he has backed away from that as well. He does no history of suicide, long history of alcoholism, I suspect a long history of chaotic interpersonal functioning related to poor judgment from alcoholism and an underlying personality disorder, but I do not see him as an acute danger to himself or others in a way that can allow me to commit him. I do not see evidence of a dementia again not to be repetitive, but his primary problem the core issue one around which all others are hinged in some way is his alcoholism and he has a plan to work on that, I do think it is adequate or sufficient, but this is what he wants to do and I am going to discharge him. I told him flatly I disagree with the long-term use of opiates and I will not give him any, he is angry about that and clearly displays it. Obviously, he is dangerous for him to consume alcohol and take hydrocodone as well as the Klonopin that is a triad that puts him at extreme risk, also makes him impairs his judgment. I think this man is in need of a lot more help than he is wanting to get or will allow me to get for him and in closing I would just say that everything is going to be contingent upon him stopping drinking. If he does, I think he has a reasonable chance of a good outcome. If he does not, I think that this is not going to end well. TRANSINT:[id number] Voice Confirmation ID: [id number] DOCUMENT ID: [id number] JORGE LUCIO MD at 1049 CC: [id number] DICTATION DATE: 06/29/19 1147 TOUR CONDUCTOR: 06/29/19 1317 DIS IN 06/29/19 [facility] [address] [place] [address]
== END 2019-06-29 14:59 | disposition home or self-care (01) | DRG 897 ==
LOC: D.PSYCH 17:59
PROVIDERS: ADMIT Psychiatry & Neurology Psychiatry; ATTEND Psychiatry & Neurology Psychiatry
DX: F10.94 Alcohol use, unspecified with alcohol-induced mood disorder (principal); I42.9 Cardiomyopathy, unspecified; F60.89 Other specific personality disorders; J43.9 Emphysema, unspecified; I25.10 Atherosclerotic heart disease of native coronary artery without angina pectoris